=== PATIENT | male | born 1950 | race Caucasian/White ===

== ENCOUNTER 2019-09-14 05:56 | Outpatient (CLI) | payer BC ==
[~2019-09-14] VITALS: Ht 177.8 cm; Wt 122.7 kg
[2019-09-14] MEDS ORDERED: AMLO1CAP5 PO (12:42)
[2019-09-14] MEDS ORDERED: FURO40TA4 PO (12:42)
[2019-09-14] MEDS ORDERED: HYDR-3820 PO (12:42)
== END 2019-09-14 12:49 | disposition home or self-care (01) ==
LOC: PREOP 05:56
PROVIDERS: ATTEND Surgery
DX: Z01.818 Encounter for other preprocedural examination (principal)

== ENCOUNTER 2019-09-18 10:49 | Day surgery (SDC) | payer BC, MEDICARE, OTHER ==
--- NOTE | 2019-09-15 09:02 | HISTORY AND PHYSICAL ---
DATE OF SERVICE: This is for procedure date of 09/18/2019. ATTENDING PHYSICIAN: Dr. Lorenzo. HISTORY OF PRESENT ILLNESS: The patient is a 69-year-old male who was referred over to us for a need of a screening colonoscopy. The patient reports he has never had one done before up to this point in his life. He denies any family history of colon cancer as well as no visible blood in his stool. He does report that he did have a Cologuard test recently which did come back positive. He denies any diarrhea or abdominal pain, but does report episodes of constipation. PAST MEDICAL HISTORY: Melanoma, hypertension, degenerative joint disease, glaucoma, lower extremity edema, intestinal intussusception 1968, appendectomy in 1962, ORIF left collarbone 1964, left total knee replacement around 2011, excision of melanoma from the back 1999, bilateral cataracts in 2016, repair of intestinal intussusception 1968. ALLERGIES: No known drug allergies. MEDICATIONS: Hydrocodone, amlodipine/benazepril, aspirin 325 mg, Lasix. SOCIAL HISTORY: Negative for smoke, social for alcohol. FAMILY HISTORY: Mother, breast cancer. Father, lung cancer. Maternal grandfather, stroke. VITAL SIGNS: Blood pressure is 140/80. Current weight is 276.4, 5 feet 10 inches. REVIEW OF SYSTEMS: Well-nourished male in no acute distress. He is not experiencing any shortness of breath or difficulty breathing. No chest pain, palpitations or diaphoresis. No nausea, vomiting or abdominal pain. No diarrhea, but does report episodes of constipation. No visible red blood per rectum, but did have a positive Cologuard test. No dark tarry stools. No fever or chills. No recent inadvertent weight loss. All other review of systems are negative. PHYSICAL EXAMINATION: CHEST: Clear. Good breath sounds bilaterally. HEART: Regular, no murmurs. EXTREMITIES: No lower extremity edema. Negative Homans sign. HEENT: No scleral icterus. NECK: No cervical lymphadenopathy. ABDOMEN: Soft, nontender, nondistended. SKIN: Warm, dry and pink. NEUROLOGIC: Awake, alert and oriented x3. ASSESSMENT AND PLAN: A 69-year-old male who is in need of a screening colonoscopy. The risks and benefits of the procedure as well as the procedure and home care instructions were explained to the patient. The patient verbalized understanding of instructions and agrees to proceed as planned. At this time, we will proceed with scheduling the patient for a screening colonoscopy. Job ID: [id number] DocumentID: [id number] Dictated Date: 09/09/2019 10:12:18 Architectural Engineer Date: 09/09/2019 10:35:02 Dictated By: MAMI TESFAYE
[~2019-09-18] VITALS: Ht 177.8 cm; Wt 122.7 kg
[2019-09-18] VITALS (9 sets, daily range): BP systolic 123–150; BP diastolic 60–78
[~2019-09-18 10:49] MED LIST: AMLO1CAP5 PO; FURO40TA4 PO; HYDR-3820 PO
[2019-09-18] MEDS ORDERED: NS IV 500 ML 0 ML ONE (10:55)
[2019-09-18] MEDS ORDERED: LACTATED RINGERS 1,000 ML IV STA (10:56)
[2019-09-18] MEDS ORDERED: LIDOCAINE JELLY 2% 6 ML SYRINGE MM PRN (11:00)
[2019-09-18] MEDS ORDERED: LACTATED RINGERS 1,000 ML IV ONE (11:03)
[2019-09-18] MEDS ORDERED: MIDAZOLAM 2 MG/2 ML (VERSED) VIAL ONE (11:35)
[2019-09-18] MEDS ORDERED: PROPOFOL INJECTION 50 ML IV ONE ×2 (11:35→12:20)
--- NOTE | 2019-09-18 11:47 | Progress Note-Pre Operative ---
Pre-Operative Progress Note H&P Reviewed The H&P was reviewed, patient examined and no changes noted. Date Seen by Provider: Sep 18, 2019 Time Seen by Provider: 11: Date H&P Reviewed: Sep 18, 2019 Time H&P Reviewed: :30 Pre-Operative Diagnosis: screening colonoscopy ELIZABETH FUENTES MD Sep 18, 2019 11:47
[2019-09-18] MEDS ORDERED: LIDOCAINE JELLY 2% 6 ML SYRINGE ONE (11:48)
--- NOTE | 2019-09-18 11:50 | Discharge Inst-Surgical ---
D/C Lap Instructions-ALFREDO Follow Up Activity as tolerated High Fiber Diet 25g or more per day Avoid Alcohol, Caffeine, Spicy Glen and Acid foods. Drink 64 fluid oz or more of fluids per day. Symptoms to Report: Fever over 101 degree F, Nausea/Vomiting If any problems/questions: Contact your physician or go to Emergency Room ELIZABETH FUENTES MD Sep 18, 2019 11:50
[2019-09-18] MEDS ORDERED: HYDROcodone/APAP 5 MG/325 MG (LORTAB) TAB PO PRN ×2 (12:00)
[2019-09-18] MEDS ORDERED: ACETAMINOPHEN 325 MG TABLET PO PRN ×2 (12:00)
[2019-09-18] MEDS ORDERED: morphine INJ 10 MG/ML 1ML (SYR OR VIAL) IVP PRN ×4 (12:00)
[2019-09-18] MEDS ORDERED: ONDANSETRON 4 MG/2 ML (SDV) Z0FRAN IVP PRN ×2 (12:00)
--- NOTE | 2019-09-18 13:00 | Progress Note-Post Operative ---
Post-Operative Progess Note Surgeon (s)/Site Damage Prevention Technician (s) Surgeon ELIZABETH FUENTES MD Site Damage Prevention Technician: none Pre-Operative Diagnosis screening colonoscopy Post-Operative Diagnosis chronic stage 3 ext and int hemorrhoids, moderate sigmoid diverticulosis. Procedure & Operative Findings Date of Procedure 09/18/19 Procedure Performed/Findings Colonoscopy Anesthesia Type mac Estimated Blood Loss Estimated blood loss (mL): minimal Specimens/Packing Specimens Removed none ELIZABETH FUENTES MD Sep 18, 2019 13:00
[2019-09-18 13:45] LABS: CREATININE SERUM 1.17 MG/DL (0.60-1.30)
--- NOTE | 2019-09-18 14:03 | Anesthesia-General Post-Op ---
MAC Patient Condition Mental Status/LOC: Same as Preop Cardiovascular: Satisfactory Nausea/Vomiting: Absent Respiratory: Satisfactory Pain: Controlled Complications: Absent Post Op Complications Complications None Follow Up Care/Instructions Patient Instructions None needed. Anesthesiology Discharge Order Discharge Order Patient is doing well, no complaints, stable vital signs, no apparent adverse anesthesia problems. No complications reported per nursing. MADDIE DELACRUZ CRNA Sep 18, 2019 14:03
--- NOTE | 2019-09-18 16:32 | OPERATIVE REPORT ---
DATE OF SERVICE: 09/18/2019 ATTENDING PRIMARY CARE PHYSICIAN: Lg Lugo MD PREOPERATIVE DIAGNOSIS: Screening colonoscopy. POSTOPERATIVE DIAGNOSES: Chronic between stage II and III external and internal hemorrhoids, moderate sigmoid diverticulosis. PROCEDURE: Colonoscopy. SURGEON: Elizabeth Fuentes MD ANESTHESIA: Monitored anesthesia care. ESTIMATED BLOOD LOSS: Minimal. FINDINGS: Chronic between stage II and III external and internal hemorrhoids, moderate sigmoid diverticulosis. DISPOSITION: The patient tolerated the procedure well. INDICATIONS: The patient is a 69-year-old male referred over to us for screening colonoscopy. He has not had a colonoscopy up to this point in his life. He did have Cologuard test, which did come back positive. He does not report any red blood per rectum nor any dark tarry stools. He does report issues with constipation. DESCRIPTION OF PROCEDURE: The patient was brought to the endoscopy suite, laid in the left lateral decubitus position. After adequate IV pain and sedative medications and monitored anesthesia care, a digital rectal examination was performed. Chronic between stage II and III external and internal hemorrhoids were identified, which were not actively edematous nor inflamed and no bleeding. Normal sphincter tone was felt and there were no palpable masses. Prostate gland was palpable and appeared normal. The endoscope was then intubated to the anus and rectum gently insufflated. The endoscope was then advanced through the valves of [place] of the rectum with no polyps or any neoplasms identified. We then proceeded through the sigmoid colon where a moderate sigmoid diverticulosis identified. There were no mucosal inflammatory changes to indicate any active diverticulitis. The endoscope was then advanced through the remainder of the descending, transverse and ascending colon to the cecum. These segments appeared normal. Of note, the endoscope was easy going in; however, there was resistance met upon removal of the scope, after retracting the colonoscope, we re-advanced the scope with findings of mild superficial mucosal bleeding and no tears or perforation. This may indicate a tortuous sigmoid colon. He does have a history of intussusception of unknown type of bowel and we will proceed with a CT scan of his abdomen as an outpatient. There was no abdominal pain once awake and passing flatus. The patient tolerated the procedure well. We will recommend a high fiber diet with 30 grams of fiber daily as well as significant amounts of water to promote soft stools on a daily basis. We will get an outpatient CT scan of the abdomen and pelvis as well. Esa ID: [id number] DocumentID: [id number] Dictated Date: 09/18/2019 12:32:47 Radiology Orderly Date: 09/18/2019 16:31:49 Dictated By: ELIZABETH FUENTES MD [facility]
== END 2019-09-18 14:15 | disposition home or self-care (01) ==
LOC: ENDO 10:49
PROVIDERS: ATTEND Surgery
DX: Z12.11 Encounter for screening for malignant neoplasm of colon (principal); K63.89 Other specified diseases of intestine; K56.1 Intussusception; K64.2 Third degree hemorrhoids; K64.4 Residual hemorrhoidal skin tags; K57.30 Diverticulosis of large intestine without perforation or abscess without bleeding; I10 Essential (primary) hypertension; Z86.73 Personal history of transient ischemic attack (TIA), and cerebral infarction without residual deficits; Z79.899 Other long term (current) drug therapy; Z90.89 Acquired absence of other organs; Z85.820 Personal history of malignant melanoma of skin; Z96.652 Presence of left artificial knee joint; Z79.891 Long term (current) use of opiate analgesic; Z79.82 Long term (current) use of aspirin; Z80.3 Family history of malignant neoplasm of breast; Z80.1 Family history of malignant neoplasm of trachea, bronchus and lung; Z82.3 Family history of stroke
CPT/HCPCS: G0121; 36415; 82565; 84520

== ENCOUNTER → 2019-09-24 | Outpatient (CLI) | payer MEDICARE, OTHER ==
[~2019-09-24] MED LIST changes: +HOLD METFORMIN - RECEIVED CONTRAST 20 ML VIAL IV SCH; +IOHEXOL 350 MG/ML 100 ML (OMNIPAQUE 350) VIAL IV ONE; +NS 100 ML (IVPB) BAG IV ONE
--- NOTE | 2019-09-24 09:29 | Diagnostic Imaging Report ---
PROCEDURE: CT abdomen and pelvis with and without contrast. TECHNIQUE: Precontrast acquisitions were acquired through the abdomen and pelvis. Multiple contiguous axial images were obtained through the abdomen and pelvis after the administration of intravenous contrast. Auto Exposure Controls were utilized during the CT exam to meet ALARA standards for radiation dose reduction. INDICATION: Intussusception. No prior studies are available for comparison. FINDINGS: The lung bases are clear. No discrete liver mass is detected. There is a small stone within the gallbladder. No biliary ductal dilatation is seen. The pancreas and spleen are unremarkable. No adrenal mass is detected. Bilateral renal cysts are present, largest lower pole left kidney measuring 4 cm. Aorta is non-aneurysmal. The small and large bowel loops are normal caliber. There is no obstruction. Patient does have a left inguinal hernia. Portions of the descending and sigmoid colon extend into the left scrotal sac. No definite obstruction is seen. There is no free fluid or fluid collection. There is no free air. The partially filled urinary bladder is unremarkable. Prostate contains multiple calcifications. Lumbar spine demonstrates multilevel degenerative disc disease. IMPRESSION: 1. Cholelithiasis. 2. Left inguinal hernia containing portions of the descending and sigmoid colon. No bowel obstruction or strangulation is identified. 3. Renal cysts. Dictated by: Dictated on workstation # [id number]
== END ==
LOC: RAD 07:14
PROVIDERS: ATTEND Surgery
DX: K80.20 Calculus of gallbladder without cholecystitis without obstruction (principal); K40.90 Unilateral inguinal hernia, without obstruction or gangrene, not specified as recurrent; N28.1 Cyst of kidney, acquired
CPT/HCPCS: 74178

== ENCOUNTER 2019-10-22 12:29 | Emergency (ER) | payer MEDICARE, OTHER ==
[~2019-10-22] VITALS: Ht 177 cm; Wt 123.0 kg
[~2019-10-22 12:29] MED LIST changes: +ACHYD1T PO; -HOLD METFORMIN - RECEIVED CONTRAST 20 ML VIAL IV SCH; -HYDR-3820 PO; -IOHEXOL 350 MG/ML 100 ML (OMNIPAQUE 350) VIAL IV ONE; -NS 100 ML (IVPB) BAG IV ONE
--- NOTE | 2019-10-22 12:57 | ED Lower Extremity ---
General Chief Complaint: Skin/Wound Problems Stated Complaint: LEG BLEEDING History of Present Illness Date Seen by Provider: Oct 22, 2019 Time Seen by Provider: 12:40 Initial Comments 69 -year-old male brought by EMS for bleeding from bilateral lower extremities. The patient denies any injury to his lower extremities. He's been having ongoing wound issues with bilateral lower legs for several months. Today he began to have some oozing from both legs, he tried impressive dressings with no improvement. He does not currently have a primary care provider, switching from Dr. Tolentino to Dr. Krishnan, appt for late October with Dr. Krishnan. He is not on anticoagulants but does take aspirin 81 mg daily. Never been told of peripheral vascular disease, no history of DVT or cardiology visits. He is not diabetic and has not seen Wound Care. Onset: this morning Pain/Injury Location: bilateral leg (LOWER LEGS) Method of Injury: unknown Allergies and Home Medications Allergies Coded Allergies: No Known Drug Allergies (Verified , 09/18/19) Home Medications Amlodipine Besylate/Benazepril 1 Each Capsule, 1 EACH PO DAILY, (Reported) Cephalexin 500 Mg Tablet, 500 MG PO QID Prescribed by: LIZA MANCUSO on 10/22/19 1524 Furosemide 40 Mg Tablet, 40 MG PO DAILY, (Reported) Hydrocodone/Acetaminophen 1 Each Tablet, 1 TAB PO Q6H PRN for PAIN-MODERATE, (Reported) Patient Home Medication List Home Medication List Reviewed: Yes Review of Systems Constitutional: no symptoms reported, see HPI Skin: see HPI, change in color (Erythema, bilat LE, from knees to ankls. Feet cold to touch. ); No change in hair/nails; dryness, hx of skin cancer (back); No pruritus, No rash; other (trace bleedign to bilat lower legs, medial ankles. No obvious abrasion or lesion) All Other Systems Reviewed Negative Unless Noted: Yes Past Zqiegjv-Uipbvu-Hlybvs Hx Past Med/Social Hx: Reviewed Nursing Past Med/Soc Hx Patient Social History Recent Hopitalizations: No Seasonal Allergies Seasonal Allergies: No Past Medical History Surgeries: Yes (colon sx, clavicle fx, melanoma removed, knee replaced) Appendectomy Respiratory: No Cardiac: Yes Hypertension Neurological: Yes TIA Genitourinary: No Gastrointestinal: No Musculoskeletal: Yes Arthritis, Chronic Back Pain Endocrine: No HEENT: No Cancer: Yes Skin, Melanoma What Type of Treatment Did You: Surgical Intervention Psychosocial: No Integumentary: Yes (cellulitis? in legs) Blood Disorders: No Physical Exam Vital Signs Vital Signs - First Documented 10/22/19 12:30 Temp 37.8 Pulse 90 Resp 20 B/P (MAP) 156/73 (100) Pulse Ox 100 Capillary Refill : Height, Weight, BMI Height: '" Weight: lbs. oz. kg; 38.81 BMI Method: General Appearance: WD/WN, no apparent distress, obese HEENT: PERRL/EOMI, normal ENT inspection, TMs normal, pharynx normal Neck: non-tender, full range of motion, supple, normal inspection Cardiovascular: normal peripheral pulses (2+ bilat UEs and LEs), regular rate, rhythm, no murmur Respiratory: chest non-tender, lungs clear, normal breath sounds Gastrointestinal: normal bowel sounds, non tender, soft Knees: bilateral knee non-tender, bilateral knee normal inspection, bilateral knee normal range of motion Ankles: bilateral ankle normal range of motion, bilateral ankle swelling, bilateral ankle other (Erythema distal to knees and proximal to ankles. ) Feet: bilateral foot non-tender, bilateral foot normal range of motion, bilateral foot swelling (2+ edema) Neurologic/Tendon: normal sensation, normal motor functions, normal tendon functions Neurologic/Psychiatric: no motor/sensory deficits, alert, normal mood/affect, oriented x 3 Skin: other (negative Homans bilateral lower extremity, circumferential erythema from below needs to ankles bilaterally. Trace bleeding, bilat medial ankles, no obvious abrasions or lacerations.) Progress/Results/Core Measures Results/Orders Lab Results Laboratory Tests Test 10/22/19 12:35 10/22/19 13:08 Range/Units White Blood Count 7.1 4.3-11.0 10^3/uL Red Blood Count 3.86 L 4.35-5.85 10^6/uL Hemoglobin 11.9 L 13.3-17.7 G/DL Hematocrit 37 L 40-54 % Mean Corpuscular Volume 95 80-99 FL Mean Corpuscular Hemoglobin 31 25-34 PG Mean Corpuscular Hemoglobin Concent 33 32-36 G/DL Red Cell Distribution Width 14.1 10.0-14.5 % Platelet Count 262 130-400 10^3/uL Mean Platelet Volume 9.2 7.4-10.4 FL Neutrophils (%) (Auto) 75 42-75 % Lymphocytes (%) (Auto) 10 L 12-44 % Monocytes (%) (Auto) 11 0-12 % Eosinophils (%) (Auto) 4 0-10 % Basophils (%) (Auto) 0 0-10 % Neutrophils # (Auto) 5.3 1.8-7.8 X 10^3 Lymphocytes # (Auto) 0.7 L 1.0-4.0 X 10^3 Monocytes # (Auto) 0.8 0.0-1.0 X 10^3 Eosinophils # (Auto) 0.3 0.0-0.3 10^3/uL Basophils # (Auto) 0.0 0.0-0.1 10^3/uL Prothrombin Time 12.8 12.2-14.7 SEC INR Comment 0.9 0.8-1.4 Activated Partial Thromboplast Time 30 24-35 SEC Sodium Level 139 135-145 MMOL/L Potassium Level 4.8 3.6-5.0 MMOL/L Chloride Level 106 98-107 MMOL/L Carbon Dioxide Level 25 21-32 MMOL/L Anion Gap 8 5-14 MMOL/L Blood Urea Nitrogen 31 H 7-18 MG/DL Creatinine 1.49 H 0.60-1.30 MG/DL Estimat Glomerular Filtration Rate 47 BUN/Creatinine Ratio 21 Glucose Level 107 H 70-105 MG/DL Lactic Acid Level 0.90 0.50-2.00 MMOL/L Calcium Level 9.0 8.5-10.1 MG/DL Corrected Calcium 9.0 8.5-10.1 MG/DL Total Bilirubin 0.4 0.1-1.0 MG/DL Aspartate Amino Transf (AST/SGOT) 16 5-34 U/L Alanine Aminotransferase (ALT/SGPT) 11 0-55 U/L Alkaline Phosphatase 74 40-136 U/L Total Protein 7.3 6.4-8.2 GM/DL Albumin 4.0 3.2-4.5 GM/DL Urine Color YELLOW Urine Clarity CLEAR Urine pH 6.0 5-9 Urine Specific [place] 1.020 1.016-1.022 Urine Protein NEGATIVE NEGATIVE Urine Glucose (UA) NEGATIVE NEGATIVE Urine Ketones NEGATIVE NEGATIVE Urine Nitrite NEGATIVE NEGATIVE Urine Bilirubin NEGATIVE NEGATIVE Urine Urobilinogen 0.2 < = 1.0 MG/DL Urine Leukocyte Esterase 1+ H NEGATIVE Urine RBC (Auto) NEGATIVE NEGATIVE Urine RBC NONE /HPF Urine WBC 5-10 H /HPF Urine Squamous Epithelial Cells RARE /HPF Urine Crystals NONE /LPF Urine Bacteria TRACE /HPF Urine Casts NONE /LPF Urine Mucus NEGATIVE /LPF Urine Culture Indicated CULTURE PENDING Micro Results Microbiology 10/22/19 Influenza Types A,B Antigen (CARYN) - Final, Complete My Orders Orders - LIZA MANCUSO SAI Cbc With Automated Diff (10/22/19 12:50) Comprehensive Metabolic Panel (10/22/19 12:50) Blood Culture (10/22/19 12:50) Urinalysis (10/22/19 12:50) Urine Culture (10/22/19 12:50) Protime With Inr (10/22/19 12:50) Partial Thromboplastin Time (10/22/19 12:50) Chest 1 View, Ap/Pa Only (10/22/19 12:50) Ed Iv/Invasive Line Start (10/22/19 12:50) Influenza A And B Antigens (10/22/19 12:50) Lactic Acid Analyzer (10/22/19 12:50) Us Georgi Lower Ext [id number] (10/22/19 12:50) Us Venous Lower Ext Georgi (10/22/19 12:50) Acetaminophen Tablet/Caplet (Tylenol T (10/22/19 13:38) Vital Signs/I&O 10/22/19 10/22/19 12:30 15:38 Temp 37.8 Pulse 90 67 Resp 20 18 B/P (MAP) 156/73 (100) 139/73 Pulse Ox 100 98 Progress Progress Note : Time: 12:40 Progress Note Patient seen and evaluated and labs, finished the normal saline infusing per EMS 1 L, bilateral lower extremity ultrasounds venous and arterial, and chest x-ray. Compression dressing to bilat LEs, as needed for bleeding. 1320 patient to US. 1430 Patient back from US, no abnormalities on Venous or Arterial US Bilat LEs. Dressing bilateral lower extremity, there is no further bleeding, Serafin wrap supplied for compression. Influenza B-positive. Patient reports he is not showing myalgias started, he has chronic back pain. He did not get a flu shot this year. Results discussed with the patient. 1500 discharge instructions and return precautions reviewed with the patient. All questions answered Diagnostic Imaging Diagonstic Imaging: Xray Plain Films/CT/US/NM/MRI: chest Comments NAME: RANDALL VALENCIA [facility] REC#: [id number] PT STATUS: REG ER : 1950 PHYSICIAN: LIZA MANCUSO ADMIT DATE: 10/22/19/ER Signed Date of Exam:10/22/19 CHEST 1 VIEW, AP/PA ONLY Indication: Peripheral edema Portable chest 1:10 PM Heart size and pulmonary vascularity are normal. Lungs are clear. There are no effusions or pneumothoraces. IMPRESSION: Negative chest Dictated by: Dictated on workstation # [id number] Dict: 10/22/19 1315 Trans: 10/22/19 1316 [id number] Interpreted by: JAQUI VALVERDE MD Electronically signed by: JAQUI VALVERDE MD 10/22/19 1316 Reviewed: Reviewed by Fl Diagonstic Imaging: Ultrasound Plain Films/CT/US/NM/MRI: other (LEs) Comments NAME: RANDALL VALENCIA [facility] REC#: [id number] PT STATUS: REG ER : 1950 PHYSICIAN: LIZA MANCUSO ADMIT DATE: 10/22/19/ER Signed Date of Exam:10/22/19 US GEORGI LOWER EXT [id number] PROCEDURE: US Bilateral lower extremity arterial. TECHNIQUE: Multiple real-time grayscale images are obtained through both lower extremity arterial systems with color Doppler imaging and color Doppler spectral analysis. INDICATION: Leg bleeding. FINDINGS: In the right leg, patient has triphasic waveforms throughout the leg with normal velocity transitions from the groin to the ankle. In the left leg, patient has triphasic wave patterns with normal velocity transitions from the groin to ankle. There is no occlusion or hemodynamically significant stenosis. IMPRESSION: Negative arterial Doppler of the lower extremities. Dictated by: Dictated on workstation # [id number] Dict: 10/22/19 1502 Trans: 10/22/19 1507 [id number] Interpreted by: JAQUI VALVERDE MD Electronically signed by: JAQUI VALVERDE MD 10/22/19 1503 Reviewed: Reviewed by Me Diagonstic Imaging: Ultrasound Plain Films/CT/US/NM/MRI: leg Comments NAME: RANDALL VALENCIA [facility] REC#: [id number] PT STATUS: REG ER : 1950 PHYSICIAN: LIZA MANCUSO ADMIT DATE: 10/22/19/ER Draft Date of Exam:10/22/19 US VENOUS LOWER EXT GEORGI PROCEDURE: US Venous Lower Ext Georgi. TECHNIQUE: Multiple real-time grayscale images were obtained over the lower extremities in various projections, bilaterally. Additional duplex Doppler and color Doppler images were also obtained. INDICATION: Leg bleeding. Study is limited due to patient movement. There is no definite evidence of right or left lower extremity DVT. Both lower extremity venous systems shows normal compressibility with normal response to augmentation Valsalva. No fluid collection is seen. IMPRESSION: No evidence of right or left lower extremity DVT. Dictated on workstation # [id number] Dict: 10/22/19 1441 Trans: 10/22/19 1443 [id number] [id number] Interpreted by: MUSA MARTIN MD Electronically signed by: Reviewed: Reviewed by Me Departure Impression Primary Impression: Influenza B Additional Impression: Bilateral leg ulcer Qualified Codes: L97.919 - Non-pressure chronic ulcer of unspecified part of right lower leg with unspecified severity; L97.929 - Non-pressure chronic ulcer of unspecified part of left lower leg with unspecified severity Disposition: 01 HOME, SELF-CARE Condition: Improved Departure-Patient Inst. Decision time for Depature: 15:00 Referrals: ONEL ROBERSON MD (PCP) Primary Care Physician DAISY TOLENTINO MD (Family) Primary Care Physician Patient Instructions: Wound Care (DC), Flu, Adult (DC) Add. Discharge Instructions: Increase water intake, 16 ounces every 2 hours while awake. Take antibiotic, as prescribed. Use Aquaphor to both legs 2 times daily. Wrap and dressings to legs, as needed. Stay home until fever free 24 hours, without medication. Alternate between Tylenol 650 mg and ibuprofen 600 mg every 4 hours for pain or fever. You may take pfja-ylc-ciwyaav cough and cold medicine as needed. Elevate the leg higher than your heart for 20 minutes every hour. You have a scheduled appointment with Dr. Louie in the hospital wound care on October 27 at 1:15 PM. Change dressings to bilateral lower extremities as needed. Return to the emergency department for new, urgent health care needs. All discharge instructions reviewed with patient and/or family. Voiced understanding. Scripts Cephalexin (Cephalexin) 500 Mg Tablet 500 MG PO QID, #28 TAB 0 Refills Prov: LIZA MANCUSO 10/22/19 Copy Copies To 1: BEBETO KRISHNAN MD; JANINE LOUIE MD, AMY ARNP Oct 22, 2019 12:57
[2019-10-22 12:58] LABS: BASOPHILS % (AUTO) 0 % (0-10); EOSINOPHILS # (AUTO) 0.3 10^3/uL (0.0-0.3); EOSINOPHILS % (AUTO) 4 % (0-10); HEMATOCRIT 37 % (40-54); HEMOGLOBIN 11.9 G/DL (13.3-17.7); LYMPHOCYTES # (AUTO) 0.7 X 10^3 (1.0-4.0); LYMPHOCYTES % (AUTO) 10 % (12-44); MEAN CORPUSCULAR HEMOGLOBIN 31 PG (25-34); MEAN CORPUSCULAR HGB CONC 33 G/DL (32-36); MEAN CORPUSCULAR VOLUME 95 FL (80-99); MEAN PLATELET VOLUME 9.2 FL (7.4-10.4); MONOCYTES # (AUTO) 0.8 X 10^3 (0.0-1.0); MONOCYTES % (AUTO) 11 % (0-12); NEUTROPHILS # (AUTO) 5.3 X 10^3 (1.8-7.8); NEUTROPHILS % (AUTO) 75 % (42-75); PLATELET COUNT 262 10^3/uL (130-400); RED CELL DISTRIBUTION WIDTH 14.1 % (10.0-14.5); WHITE BLOOD COUNT 7.1 10^3/uL (4.3-11.0)
[2019-10-22 13:03] LABS: INR 0.9 (0.8-1.4); PROTHROMBIN TIME PATIENT 12.8 SEC (12.2-14.7)
[2019-10-22 13:10] LABS: BILIRUBIN,TOTAL 0.4 MG/DL (0.1-1.0); CREATININE SERUM 1.49 MG/DL (0.60-1.30); TOTAL PROTEIN 7.3 GM/DL (6.4-8.2)
[2019-10-22 13:11] LABS: POTASSIUM 4.8 MMOL/L (3.6-5.0)
[2019-10-22 13:12] LABS: BILIRUBIN,URINE NEGATIVE (NEGATIVE); CLARITY,URINE CLEAR; COLOR,URINE YELLOW; GLUCOSE, URINE (UA) NEGATIVE (NEGATIVE); KETONES,URINE NEGATIVE (NEGATIVE); LEUKOCYTE ESTERASE ,URINE 1+ (NEGATIVE); NITRITE,URINE NEGATIVE (NEGATIVE); PROTEIN,URINE NEGATIVE (NEGATIVE)
--- NOTE | 2019-10-22 13:17 | Diagnostic Imaging Report ---
Indication: Peripheral edema Portable chest 1:10 PM Heart size and pulmonary vascularity are normal. Lungs are clear. There are no effusions or pneumothoraces. IMPRESSION: Negative chest Dictated by: Dictated on workstation # [id number]
[2019-10-22 13:22] LABS: BACTERIA,URINE TRACE /HPF; SQUAMOUS EPITHELIAL CELL,UR RARE /HPF
[2019-10-22] MEDS ORDERED: ACETAMINOPHEN 325 MG TABLET PO STA (13:38)
--- NOTE | 2019-10-22 14:44 | Diagnostic Imaging Report ---
PROCEDURE: US Venous Lower Ext Antony. TECHNIQUE: Multiple real-time grayscale images were obtained over the lower extremities in various projections, bilaterally. Additional duplex Doppler and color Doppler images were also obtained. INDICATION: Leg bleeding. Study is limited due to patient movement. There is no definite evidence of right or left lower extremity DVT. Both lower extremity venous systems shows normal compressibility with normal response to augmentation Valsalva. No fluid collection is seen. IMPRESSION: No evidence of right or left lower extremity DVT. Dictated by: Dictated on workstation # [id number]
--- NOTE | 2019-10-22 15:05 | Diagnostic Imaging Report ---
PROCEDURE: US Bilateral lower extremity arterial. TECHNIQUE: Multiple real-time grayscale images are obtained through both lower extremity arterial systems with color Doppler imaging and color Doppler spectral analysis. INDICATION: Leg bleeding. FINDINGS: In the right leg, patient has triphasic waveforms throughout the leg with normal velocity transitions from the groin to the ankle. In the left leg, patient has triphasic wave patterns with normal velocity transitions from the groin to ankle. There is no occlusion or hemodynamically significant stenosis. IMPRESSION: Negative arterial Doppler of the lower extremities. Dictated by: Dictated on workstation # [id number]
[2019-10-22] MEDS ORDERED: CEPH500T PO (15:24)
[2019-10-22 15:38] VITALS: BP 139/73
== END 2019-10-22 15:41 | disposition home or self-care (01) ==
LOC: EDUNIT# 12:29 → ER 12:30
DX: L97.919 Non-pressure chronic ulcer of unspecified part of right lower leg with unspecified severity (principal); L97.929 Non-pressure chronic ulcer of unspecified part of left lower leg with unspecified severity; J10.1 Influenza due to other identified influenza virus with other respiratory manifestations; I10 Essential (primary) hypertension; Z79.82 Long term (current) use of aspirin; Z86.73 Personal history of transient ischemic attack (TIA), and cerebral infarction without residual deficits; Z85.820 Personal history of malignant melanoma of skin; Z85.828 Personal history of other malignant neoplasm of skin
CPT/HCPCS: 36415; 71045; 80053; 81000; 83605; 85025; 85610; 85730; 87040; 87088; 87804; 93925; 93970

== ENCOUNTER → 2019-10-28 | Outpatient (CLI) | payer MEDICARE, OTHER ==
[~2019-10-28] MED LIST changes: +CEPH500T PO
== END ==
LOC: WOUNDCARE 13:07
PROVIDERS: ATTEND Surgery
DX: I87.323 Chronic venous hypertension (idiopathic) with inflammation of bilateral lower extremity (principal); I89.0 Lymphedema, not elsewhere classified; E66.01 Morbid (severe) obesity due to excess calories
CPT/HCPCS: 99213

== ENCOUNTER → 2019-11-05 | Outpatient (CLI) | payer MEDICARE, OTHER ==
[~2019-11-05] MED LIST changes: +ASPI-586 PO
== END ==
LOC: WOUNDCARE 13:34
PROVIDERS: ATTEND Surgery
DX: L30.8 Other specified dermatitis (principal); I89.0 Lymphedema, not elsewhere classified; E66.01 Morbid (severe) obesity due to excess calories
CPT/HCPCS: 99213

== ENCOUNTER 2019-11-12 05:38 | Outpatient (CLI) | payer MEDICARE, OTHER ==
[~2019-11-12] VITALS: Ht 177.8 cm; Wt 122.7 kg
[~2019-11-12 05:38] MED LIST changes: -ASPI-586 PO
[2019-11-12] MEDS ORDERED: ASPI-586 PO (14:58)
== END 2019-11-12 15:19 | disposition home or self-care (01) ==
LOC: PREOP 05:38
PROVIDERS: ATTEND Surgery
DX: Z01.818 Encounter for other preprocedural examination (principal)

== ENCOUNTER → 2019-11-12 | Outpatient (CLI) | payer MEDICARE, OTHER | LOC: WOUNDCARE 12:18 | PROVIDERS: ATTEND Surgery | DX: L30.8 Other specified dermatitis (principal); I89.0 Lymphedema, not elsewhere classified; E66.01 Morbid (severe) obesity due to excess calories | CPT/HCPCS: 99212 ==

== ENCOUNTER 2019-11-19 07:21 | Day surgery (SDC) | payer MEDICARE, OTHER ==
[2019-11-19] VITALS (11 sets, daily range): BP systolic 134–169; BP diastolic 57–76
[~2019-11-19] VITALS: Ht 177.8 cm; Wt 122.7 kg
[~2019-11-19 07:21] MED LIST changes: +ASPI-586 PO
[2019-11-19] MEDS ORDERED: LACTATED RINGERS 1,000 ML IV PRN (07:25)
--- OUTSIDE RECORDS SUMMARY | 2019-11-19 07:26 | XMS REPORT | Clinical Summary ---
Author Author [facility] Organization [facility] Address Unknown Phone Unavailable Care Team Providers Care Product Coordinator Name Role Phone Eder Lorenzo MD PCP Source Comments Some departments are not documenting in the electronic medical record. If you d o not see the information that you expected, contact Release of Information in [facility] [employer] Information Management department at [phone] for further assistan ce in locating additional records.[facility] Allergies Not on File Medications Not on file Active Problems Not on file Family History Medical History Relation Name Comments Cancer-Lung Father smoker Cancer-Breast Mother Brain Tumor Other M 1st cousin Relation Name Status Comments Brother Alive Daughter Alive Father (Age 73) Maternal Aunt (Age 75) Maternal Grandfather (Age 75) Maternal Grandmother (Age 55) Maternal Uncle (Age 75) Mother (Age 68) Other M 1st cousin (Age 45) Paternal Aunt (Age 55) Paternal Aunt (Age 75) Paternal Aunt (Age 75) Paternal Aunt (Age 75) Paternal Grandfather (Age 35) Paternal Grandmother (Age 85) Paternal Uncle (Age 75) Paternal Uncle (Age 75) Paternal Uncle (Age 75) Sister Alive Son Alive Social History Date Tobacco Use Types Packs/Day Years Used Never Assessed Sex Assigned at Date Recorded Not on file Industry Job Start Date Occupation Not on file Not on file Not on file Travel End Travel History Travel Start No recent travel history available. Last Filed Vital Signs Not on file Plan of Treatment Health Maintenance Due Date Last Done Comments HEPATITIS C SCREENING 1950 MEDICARE ANNUAL WELLNESS 1950 VISIT DTAP/TDAP VACCINES (1 - 1962 Tdap) PHYSICAL (COMPREHENSIVE) 1969 EXAM COLORECTAL CANCER 2001 SCREENING SHINGLES RECOMBINANT 2001 VACCINE (1 of 2) PNEUMONIA (PCV13/PPSV23) 02/02/2016 VACCINES (1 of 2 - PCV13) INFLUENZA VACCINE 03/26/2019 Results Not on filefrom Last 3 Months Insurance Type Payer Benefit Subscriber ID Effective Phone Address Plan / Dates Group Medicare MEDICARE MEDICARE xxxxxxxxxxx 2016-P PART A AND resent B Medicare CIGNA CIGNA xxxxxxxxxx 2018-P MEDICARE resent SUPPLEMENT 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 Advance Directive/DPOA
--- OUTSIDE RECORDS SUMMARY | 2019-11-19 07:26 | XMS REPORT | Continuity of Care Document ---
Author Organization Unknown Address Unknown Phone Unavailable Allergies Active Description Code Type Severity Reaction Onset Reported/Identified Relationship to Patient Clinical Status Yes No Known Drug Allergies [id number] Drug Allergy Unknown N/A 09/18/2019 Medications There is no data. Problems Date Dx Coded Attending Type Code Diagnosis Diagnosed By 08/30/2015 ONEL ROBERSON MD Ot M79. 89 09/14/2019 ELIZABETH FUENTES MD, Ot Z01.81 8 ENCOUNTER FOR OTHER PREPROCEDURAL EXAMIN 09/15/2019 ELIZBAETH FUENTES MD, Ot Z01.81 8 ENCOUNTER FOR OTHER PREPROCEDURAL EXAMIN 09/16/2019 ONEL ROBERSON MD Ot M79. 89 OTHER SPECIFIED SOFT TISSUE DISORDERS 09/18/2019 ELIZABETH FUENTES MD Ot I10 ESSENTIAL (PRIMARY) HYPERTENSION 09/18/2019 ELIZABETH FUENTES MD Ot K56.1 INTUSSUSCEPTION 09/18/2019 ELIZABETH FUENTES MD Ot K57.30 DVRTCLOS OF LG INT W/O PERFORATION OR AB 09/18/2019 ELIZABETH FUENTES MD Ot K63.89 OTHER SPECIFIED DISEASES OF INTESTINE 09/18/2019 ELIZABETH FUENTES MD, Ot K64.2 THIRD DEGREE HEMORRHOIDS 09/18/2019 ELIZABETH FUENTES MD, Ot K64.4 RESIDUAL HEMORRHOIDAL SKIN TAGS 09/18/2019 ELIZABETH FUENTES MD Ot Z12.11 ENCOUNTER FOR SCREENING FOR MALIGNANT NE 09/18/2019 ELIZABETH FUENTES MD Ot Z79.82 RETIREMENT (CURRENT) USE OF ASPIRIN 09/18/2019 ELIZABETH FUENTES MD, Ot Z79.89 1 RETIREMENT (CURRENT) USE OF OPIATE ANALGE 09/18/2019 ELIZABETH FUENTES MD, Ot Z79.89 9 OTHER RETIREMENT (CURRENT) DRUG THERAPY 09/18/2019 ELIZABETH FUENTES MD, Ot Z80.1 FAMILY HISTORY OF MALIG NEOPLASM OF TRAC 09/18/2019 ELIZABETH FUENTES MD, Ot Z80.3 FAMILY HISTORY OF MALIGNANT NEOPLASM OF 09/18/2019 ELIZABETH FUENTES MD, Ot Z82.3 FAMILY HISTORY OF STROKE 09/18/2019 ELIZABETH FUENTES MD, Ot Z85.82 0 PERSONAL HISTORY OF MALIGNANT MELANOMA O 09/18/2019 ELIZABETH FUENTES MD, Ot Z86.73 PRSNL HX OF TIA (TIA), AND CEREB INFRC W 09/18/2019 ELIZABETH FUENTES MD, Ot Z90.89 ACQUIRED ABSENCE OF OTHER ORGANS 09/18/2019 ELIZABETH FUENTES MD, Ot Z96.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 09/22/2019 ELIZABETH FUENTES MD, Ot I10 ESSENTIAL (PRIMARY) HYPERTENSION 09/22/2019 ELIZABETH FUENTES MD, Ot K56.1 INTUSSUSCEPTION 09/22/2019 ELIZABETH FUENTES MD, Ot K57.30 DVRTCLOS OF LG INT W/O PERFORATION OR AB 09/22/2019 ELIZABETH FUENTES MD, Ot K63.89 OTHER SPECIFIED DISEASES OF INTESTINE 09/22/2019 ELIZABETH FUENTES MD, Ot K64.2 THIRD DEGREE HEMORRHOIDS 09/22/2019 ELIZABETH FUENTES MD, Ot K64.4 RESIDUAL HEMORRHOIDAL SKIN TAGS 09/22/2019 ELIZABETH FUENTES MD, Ot Z12.11 ENCOUNTER FOR SCREENING FOR MALIGNANT NE 09/22/2019 ELIZABETH FUENTES MD, Ot 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 09/22/2019 ELIZABETH FUENTES MD, Ot Z79.89 1 RETIREMENT (CURRENT) USE OF OPIATE ANALGE 09/22/2019 ELIZABETH FUENTES MD, Ot Z79.89 9 OTHER RETIREMENT (CURRENT) DRUG THERAPY 09/22/2019 ELIZABETH FUENTES MD, Ot Z80.1 FAMILY HISTORY OF MALIG NEOPLASM OF TRAC 09/22/2019 ELIZABETH FUENTES MD, Ot Z80.3 FAMILY HISTORY OF MALIGNANT NEOPLASM OF 09/22/2019 ELIZABETH FUENTES MD, Ot Z82.3 FAMILY HISTORY OF STROKE 09/22/2019 ELIZABETH FUENTES MD, Ot Z85.82 0 PERSONAL HISTORY OF MALIGNANT MELANOMA O 09/22/2019 ELIZABETH FUENTES MD, Ot Z86.73 PRSNL HX OF TIA (TIA), AND CEREB INFRC W 09/22/2019 ELIZABETH FUENTES MD, Ot Z90.89 ACQUIRED ABSENCE OF OTHER ORGANS 09/22/2019 ELIZABETH FUENTES MD, Ot Z96.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 09/22/2019 ONEL ROBERSON MD, Ot M79. 89 OTHER SPECIFIED SOFT TISSUE DISORDERS 09/24/2019 ELIZABETH FUENTES MD, Ot I10 ESSENTIAL (PRIMARY) HYPERTENSION 09/24/2019 ELIZABETH FUENTES MD, Ot K56.1 INTUSSUSCEPTION 09/24/2019 ELIZABETH FUENTES MD, Ot K57.30 DVRTCLOS OF LG INT W/O PERFORATION OR AB 09/24/2019 ELIZABETH FUENTES MD, Ot K63.89 OTHER SPECIFIED DISEASES OF INTESTINE 09/24/2019 ELIZABETH FUENTES MD, Ot K64.2 THIRD DEGREE HEMORRHOIDS 09/24/2019 ELIZABETH FUENTES MD, Ot K64.4 RESIDUAL HEMORRHOIDAL SKIN TAGS 09/24/2019 ELIZABETH FUENTES MD, Ot Z12.11 ENCOUNTER FOR SCREENING FOR MALIGNANT NE 09/24/2019 ELIZABETH FUENTES MD, Ot Z79.82 RETIREMENT (CURRENT) USE OF ASPIRIN 09/24/2019 ELIZABETH FUENTES MD, Ot Z79.89 1 RETIREMENT (CURRENT) USE OF OPIATE ANALGE 09/24/2019 ELIZABETH FUENTES MD, Ot 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 89 OTHER SPECIFIED SOFT TISSUE DISORDERS 09/25/2019 ALFREDO JIMÉNEZ, ELIZABETH Ot K40.90 UNIL INGUINAL HERNIA, W/O OBST OR GANGR, 09/25/2019 ALFREDO JIMÉNEZ, ELIZABETH Ot K80.20 CALCULUS OF GALLBLADDER W/O CHOLECYSTITI 09/25/2019 ALFREDO JIMÉNEZ, ELIZABETH Ot N28.1 CYST OF KIDNEY, ACQUIRED 10/20/2019 ALFREDO JIMÉNEZ, ELIZABETH Ot K40.90 UNIL INGUINAL HERNIA, W/O OBST OR GANGR, 10/20/2019 ALFREDO JIMÉNEZ, ELIZABETH Ot K80.20 CALCULUS OF GALLBLADDER W/O CHOLECYSTITI 10/20/2019 ALFREDO JIMÉNEZ, ELIZABETH Ot N28.1 CYST OF KIDNEY, ACQUIRED 10/22/2019 LIZA MANCUSO Ot I10 ESSENTIAL (PRIMARY) HYPERTENSION 10/22/2019 BARTOLOME, LIZA GIBBS Ot J10.1 FLU DUE TO OTH IDENT INFLUENZA VIRUS W O 10/22/2019 BARTOLOME, LIZA KRAFTP Ot L97.919 NON-PRS CHRONIC ULC UNSP PRT OF R LOW LE 10/22/2019 BARTOLOME, LIZA CURTAIN WORKER Ot L97.929 NON-PRS CHRONIC ULC UNSP PRT OF L LOW LE 10/22/2019 BARTOLOME, LIZA KRAFTP Ot M79.604 PAIN IN RIGHT LEG 10/22/2019 LIZA MANCUSOP Ot Z79.82 RETIREMENT (CURRENT) USE OF ASPIRIN 10/22/2019 BARTOLOME, LIZA KRAFTP Ot Z85.820 PERSONAL HISTORY OF MALIGNANT MELANOMA O 10/22/2019 LIZA MANCUSO Ot Z85.828 PERSONAL HISTORY OF OTHER MALIGNANT NEOP 10/22/2019 BARTOLOME, LIZA KRAFTP Ot Z86.73 PRSNL HX OF TIA (TIA), AND CEREB INFRC W 10/26/2019 BARTOLOME, LIZA CURTAIN WORKER Ot I10 ESSENTIAL (PRIMARY) HYPERTENSION 10/26/2019 BARTOLOME, LIZA KRAFTP Ot J10.1 FLU DUE TO OTH IDENT INFLUENZA VIRUS W O 10/26/2019 BARTOLOME, LIZA KRAFTP Ot L97.919 NON-PRS CHRONIC ULC UNSP PRT OF R LOW LE 10/26/2019 BARTOLOME, LIZA CURTAIN WORKER Ot L97.929 NON-PRS CHRONIC ULC UNSP PRT OF L LOW LE 10/26/2019 BARTOLOME, LIZA CURTAIN WORKER Ot M79.604 PAIN IN RIGHT LEG 10/26/2019 LIZA MANCUSO SAI Ot Z79.82 RETIREMENT (CURRENT) USE OF ASPIRIN 10/26/2019 LIZA MANCUSO SAI Ot Z85.820 PERSONAL HISTORY OF MALIGNANT MELANOMA O 10/26/2019 LIZA MANCUSO SAI Ot Z85.828 PERSONAL HISTORY OF OTHER MALIGNANT NEOP 10/26/2019 BARTOLOME LIZA GIBBS Ot Z86.73 PRSNL HX OF TIA (TIA), AND CEREB INFRC W 10/30/2019 JANINE FAROOQ MD, Ot E66.01 MORBID (SEVERE) OBESITY DUE TO EXCESS CA 10/30/2019 JANINE FAROOQ MD, Ot I87.323 CHRONIC VENOUS HTN W INFLAMMATION OF GEORGI 10/30/2019 JANINE FAROOQ MD, Ot I89 .0 LYMPHEDEMA, NOT ELSEWHERE CLASSIFIED 11/11/2019 JANINE FAROOQ MD, Ot E66.01 MORBID (SEVERE) OBESITY DUE TO EXCESS CA 11/11/2019 JANINE FAROOQ MD, Ot I89 .0 LYMPHEDEMA, NOT ELSEWHERE CLASSIFIED 11/11/2019 JANINE FAROOQ MD, Ot L30 .8 OTHER SPECIFIED DERMATITIS 11/12/2019 ELIZABETH FUENTES MD Ot Z01.81 8 ENCOUNTER FOR OTHER PREPROCEDURAL EXAMIN 11/13/2019 ELIZABETH FUENTES MD Ot Z01.81 8 ENCOUNTER FOR OTHER PREPROCEDURAL EXAMIN 11/18/2019 JANINE FAROOQ MD, Ot E66.01 MORBID (SEVERE) OBESITY DUE TO EXCESS CA 11/18/2019 JANINE FAROOQ MD, Ot I89 .0 LYMPHEDEMA, NOT ELSEWHERE CLASSIFIED 11/18/2019 JANINE FAROOQ MD, Ot L30 .8 OTHER SPECIFIED DERMATITIS 11/18/2019 JANINE FAROOQ MD, Ot E66.01 MORBID (SEVERE) OBESITY DUE TO EXCESS CA 11/18/2019 JANINE FAROOQ MD, Ot I89 .0 LYMPHEDEMA, NOT ELSEWHERE CLASSIFIED 11/18/2019 JANINE FAROOQ MD, Ot L30 .8 OTHER SPECIFIED DERMATITIS 11/18/2019 ELIZABETH FUENTES MD Ot Z01.81 8 ENCOUNTER FOR OTHER PREPROCEDURAL EXAMIN Procedures There is no data. Results Test Result Range Serum or plasma urea nitrogen measuremen t (mass/volume) - 09/18/19 13:17 Serum or plasma urea nitrogen measurement (mass/volume ) 19 mg/dL 7-18 Serum or plasma creatinine measurement ( mass/volume) - 09/18/19 13:17 Serum or plasma creatinine measurement (mass/volume) 1.17 mg/dL 0.60-1.30 [id number] - 10/22/19 12:30 [id number] SPECIMEN AVAILABLE [facility] Complete blood count (CBC) with automate d white blood cell (WBC) differential - 10/22/19 12:35 Blood leukocytes automated count (number/volume) 7.1 10*3/uL 4.3-11.0 Blood erythrocytes automated count (number/volume) 3.86 10*6/uL 4.35-5.85 Venous blood hemoglobin measurement (mass/volume) 11.9 g/dL 13.3-17.7 Blood hematocrit (volume fraction) 37 % 40-54 Automated erythrocyte mean corpuscular volume 95 [ foz_us] 80-99 Automated erythrocyte mean corpuscular h emoglobin (mass per erythrocyte) 31 pg 25-34 Automated erythrocyte mean corpuscular h emoglobin concentration measurement (mass/volume) 33 g/dL 32-36 Automated erythrocyte distribution width ratio 14. 1 % 10.0- 14.5 Automated blood platelet count (count/volume) 262 10*3/uL 130-400 Automated blood platelet mean volume measurement 9.2 [foz_us] 7.4-10.4 Automated blood neutrophils/100 leukocytes 75 % 42-75 Automated blood lymphocytes/100 leukocytes 10 % 12-44 Blood monocytes/100 leukocytes 11 % 0-12 Automated blood eosinophils/100 leukocytes 4 % 0-10 Automated blood basophils/100 leukocytes 0 % 0-10 Blood neutrophils automated count (number/volume) 5.3 10*3 1.8-7.8 Blood lymphocytes automated count (number/volume) 0.7 10*3 1.0-4.0 Blood monocytes automated count (number/volume) 0. 8 10*3 0.0-1.0 Automated eosinophil count 0.3 10*3/uL 0 .0-0.3 Automated blood basophil count (count/volume) 0.0 10*3/uL 0.0-0.1 PT panel in platelet poor plasma by coag ulation assay - 10/22/19 12:35 Prothrombin time (PT) in platelet poor plasma by coagu lation assay 12.8 s 12.2-14.7 INR in platelet poor plasma or blood by coagulation as say 0.9 0.8-1.4 Activated partial thromboplastin time (a PTT) in platelet poor plasma bycoagulation assay - 10/22/19 12:35 Activated partial thromboplastin time (a PTT) in platelet poor plasma bycoagulation assay 30 s 24-35 Comprehensive metabolic panel - 10/22/19 12:35 Serum or plasma sodium measurement (moles/volume) 139 mmol/L 135-145 Serum or plasma potassium measurement (moles/volume) 4.8 mmol/L 3.6-5.0 Serum or plasma chloride measurement (moles/volume) 106 mmol/L 98-107 Carbon dioxide 25 mmol/L 21-32 Serum or plasma anion gap determination (moles/volume) 8 mmol/L 5-14 Serum or plasma urea nitrogen measurement (mass/volume ) 31 mg/dL 7-18 Serum or plasma creatinine measurement (mass/volume) 1.49 mg/dL 0.60-1.30 Serum or plasma urea nitrogen/creatinine mass ratio 21 NRG Serum or plasma creatinine measurement w ith calculation of estimated glomerular filtration rate 47 NRG Serum or plasma glucose measurement (mass/volume) 107 mg/dL 70-105 Serum or plasma calcium measurement (mass/volume) 9.0 mg/dL 8.5-10.1 Serum or plasma total bilirubin measurement (mass/volu me) 0.4 mg/dL 0.1-1.0 Serum or plasma alkaline phosphatase en surement (enzymatic activity/volume) 74 U/L 40-136 Serum or plasma aspartate aminotransfera se measurement (enzymatic activity/volume) 16 U/L 5-34 Serum or plasma alanine aminotransferase measurement (enzymatic activity/volume) 11 U/L 0-55 Serum or plasma protein measurement (mass/volume) 7.3 g/dL 6.4-8.2 Serum or plasma albumin measurement (mass/volume) 4.0 g/dL 3.2-4.5 CALCIUM CORRECTED 9.0 mg/dL 8.5-10.1 Blood lactic acid measurement (moles/vol ume) - 10/22/19 12:35 Blood lactic acid measurement (moles/volume) 0.90 mmol/L 0.50-2.00 Bacterial blood culture - 10/22/19 12:57 Bacterial blood culture NG NRG Complete urinalysis with reflex to cultu re - 10/22/19 13:08 Urine color determination YELLOW NRG Urine clarity determination CLEAR NR G Urine pH measurement by test strip 6.0 5-9 Specific gravity of urine by test strip 1.020 1.016-1.022 Urine protein assay by test strip, semi-quantitative NEGATIVE NEGATIVE Urine glucose detection by automated test strip NE GATIVE NEGATIVE Erythrocytes detection in urine sediment by light micr oscopy NEGATIVE NEGATIVE Urine ketones detection by automated test strip NE GATIVE NEGATIVE Urine nitrite detection by test strip NEGATIVE NEGATIVE Urine total bilirubin detection by test strip NEGA TIVE NEGATIVE Urine urobilinogen measurement by automated test strip (mass/volume) 0.2 mg/dL < = 1.0 Urine leukocyte esterase detection by dipstick 1+ NEGATIVE Automated urine sediment erythrocyte cou nt by microscopy (number/high power field) NONE NRG Automated urine sediment leukocyte count by microscopy (number/high power field) [HPF] NRG Bacteria detection in urine sediment by light microsco py TRACE NRG Squamous epithelial cells detection in u rine sediment by light microscopy RARE NRG Crystals detection in urine sediment by light microsco py NONE NRG Casts detection in urine sediment by light microscopy NONE NRG Mucus detection in urine sediment by light microscopy NEGATIVE NRG Complete urinalysis with reflex to culture CULTURE PENDING NRG Bacterial urine culture - 10/22/19 13:08 Bacterial urine culture NG NRG Influenza virus A and B antigen detectio n - 10/22/19 13:16 CALL POSITIVES (F1 HELP) CALL TO ADRIEN AT [phone] NRG FLU RESULT POSITIVE FOR INFLUENZA A ANT IGEN, NEG FOR B ANTIGEN, BY IA NRG Bacterial blood culture - 10/22/19 14:32 Bacterial blood culture NG NRG Encounters ACCT No. Visit Date/Time Discharge Status Pt. Type Provider Facility Loc./Unit Complaint [id number] 11/12/2019 12:18:00 23:59:59 CLS Outpatient JANINE FAROOQ MD [facility] WOUND[facility] [id number] 11/12/2019 05:38:00 15:19:00 DIS Outpatient ELIZABETH FUENTES MD [facility] PREOP GALLSTONES [id number] 11/05/2019 13:34:00 23:59:59 CLS Outpatient JANINE FAROOQ MD [facility] [id number] 10/28/2019 13:07:00 23:59:59 CLS Outpatient JANINE FAROOQ MD [facility] W[facility] [id number] 10/22/2019 12:30:00 15:41:00 DIS Emergency LIZA MANCUSO [facility] ER LEG BLEEDING [id number] 09/24/2019 07:14:00 23:59:59 CLS Outpatient ELIZABETH FUENTES MD [facility] RAD HX INTUSSUSCEPTION [id number] 09/18/2019 10:49:00 14:15:00 DIS Outpatient ELIZABETH FUENTES MD [facility] ENDO SCREENING [id number] 09/14/2019 05:56:00 12:49:00 DIS Outpatient ELIZABETH FUENTES MD [facility] PREOP COLONOSCOPY [id number] 08/11/2015 13:42:00 23:59:59 CLS Outpatient DA JIMÉNEZ, ONEL R [facility] RAD REDNESS/SWELLING R LOWE R LEG [id number] 11/19/2019 08:00:00 P EN Preadmit ELIZABETH FUENTES MD [facility] SDC GALLSTONES
--- OUTSIDE RECORDS SUMMARY | 2019-11-19 07:26 | XMS REPORT ---
Author Author [facility] Organization [facility] Address [address] [address] Care Team Providers Care Insurance Verification Representative Name Role Phone ELIZABETH FUENTES MD Unavailable Unavailable DA JIMÉNEZ, ONEL Newman Unavailable Unavailable LIZA ABBOTT Unavailable Unavailable CECIL ERVIN DO Unavailable Unavailable OSEAS JIMÉNEZ, JANINE Stallings Unavailable Unavailable Allergies No Information Medications No Information Problems Problem Normalized Date of Normalized Normalized Provider Fac ility Classification Problem(s) Problem Problem Problem Sta tus Onset/Resoluti Duration on Residual Acquired 10-19-2019 - Episodic Active TAKAAKI KIDO , [facility] Via codes; absence of [facility] unclassified other organs Hospital - (7 sources.) [place] ([address]) Biliary tract Calculus of 10-20-2019 - Episodic Active TAKAAKI KIDO , [facility] Via disease (2 gallbladder [facility] sources.) without Hospital - cholecystitis [place] without (02044) obstruction Other diseases Chronic venous 10-29-2019 - Chronic Active CARYN AUGUSTO FAROOQ [facility] Via of veins and hypertension [facility] lymphatics (1 (idiopathic) Hospital - source.) with [place] inflammation ([address]23) of bilateral lower extremity Other diseases Cyst of 10-20-2019 - Episodic Active TAKAAKI K OSCAR , [facility] Via of kidney and kidney, [facility] [place] ureters (2 acquired Hospital - sources.) [place] ([address]) Diverticulosis Diverticulosis 10-19-2019 - Chronic Active JORGE AAKI KIDO , [facility] Via and of large [facility] diverticulitis intestine Hospital - (7 sources.) without [place] perforation or (00404) abscess without bleeding Other Encounter for 10-19-2019 - Episodic Active TAKAAKI KI DO , [facility] Via screening for screening for MD [place] suspected malignant Hospital - conditions neoplasm of [place] (not mental colon (73675) disorders or infectious disease) (7 sources.) Essential Essential 10-19-2019 - Chronic Active TAKAAKI KIDO , [facility] Via hypertension (primary) [facility] (10 sources.) hypertension [facility] ([address]) Residual Family history 10-19-2019 - Episodic Active TAKAAKI K OSCAR , [facility] Via codes; of malignant [facility] unclassified neoplasm of Hospital - (7 sources.) breast [place] (39197) Residual Family history 10-19-2019 - Episodic Active TAKAAKI K OSCAR , [facility] Via codes; of malignant [facility] [place] unclassified neoplasm of Hospital - (7 sources.) trachea, [place] bronchus and (03359) lung Residual Family history 10-19-2019 - Episodic Active TAKAAKI K OSCAR , [facility] Via codes; of stroke [facility] unclassified Hospital - (7 sources.) [place] (19085) Influenza (3 Influenza due 10-26-2019 - Episodic Active LIZA HI TE , [facility] Via sources.) to other SAI [facility] identified Hospital - influenza [place] virus with (91566) other respiratory manifestations Intestinal Intussusceptio 10-19-2019 - Episodic Active TAKAAKI KIDO , [facility] Via obstruction n [facility] without hernia Hospital - (7 sources.) [place] ([address]) Other commissioning manager 10-19-2019 - Episodic Active TAKAAKI KIDO , [facility] Via aftercare (10 (current) use [facility] sources.) of aspirin [facility] (17990) Other commissioning manager 10-19-2019 - Episodic Active TAKAAKI KIDO , [facility] Via aftercare (7 (current) use [facility] [place] sources.) of opiate Hospital - analgesic [place] (73528) Other diseases Lymphedema, 10-29-2019 - Chronic Active LJ FAROOQ [facility] Via of veins and not elsewhere , [facility] [place] lymphatics (2 classified Hospital - sources.) [place] ([address]256) Other Morbid 10-29-2019 - Chronic Active JANINE FAROOQ [facility] Via nutritional; (severe) , [facility] [place] endocrine; and obesity due to Hospital - metabolic excess [place] disorders (2 calories (97035) sources.) Chronic ulcer Non-pressure 10-26-2019 - Chronic Active LIZA HI TE , [facility] Via of skin (6 chronic ulcer [facility] sources.) of unspecified Hospital - part of right [place] lower leg with (04137) unspecified severity Translations: [ NON-PRS CHRONIC ULC UNSP PRT OF L LOW LE] Other Other long 10-19-2019 - Episodic Active TAKAAKI KIDO , [facility] Via aftercare (7 term (current) [facility] [place] sources.) drug therapy [facility] ([address]802) Allergic Other 11-11-2019 - Episodic Active JANINE FAROOQ [facility] Via reactions (1 specified , [facility] [place] source.) dermatitis [facility] (85465) Other Other 10-19-2019 - Episodic Active TAKAAKI KIDO , [facility] Via gastrointestin specified [facility] al disorders diseases of Hospital - (7 sources.) intestine [place] (51437) Other Other Episodic Active ONEL SEGLIE , [facility] Via connective specified soft [facility] [place] tissue Hospital - (3 sources.) disorders [place] (44746) Other Pain in right 10-26-2019 - Episodic Active LIZA BARTOLOME , [facility] Via connective leg [facility] tissue disease Hospital - (3 sources.) [place] (70776) Melanomas of Personal 10-19-2019 - Episodic Active TAKAAKI KID O , [facility] Via skin (10 history of [facility] [place] sources.) malignant Hospital - melanoma of [place] skin (81330) Other Personal 10-26-2019 - Episodic Active LIZA BARTOLOME , [facility] Via non-epithelial history of SAI [place] cancer of skin other Hospital - (3 sources.) malignant [place] neoplasm of (34981) skin Other Personal 10-19-2019 - Episodic Active TAKAAKI KIDO , [facility] Via circulatory history of [facility] [place] (10 transient Hospital - sources.) ischemic [place] attack (TIA), (26417) and cerebral infarction without residual deficits 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 TAKAAKI KIDO , [facility] Via connective left [facility] [place] tissue disease artificial Hospital - (7 sources.) knee joint [place] (43261) Hemorrhoids Third degree 10-19-2019 - Episodic Active TAKAAKI KIDO , [facility] Via (14 sources.) hemorrhoids [facility] [place] Translations: Hospital - [ RESIDUAL [place] HEMORRHOIDAL (17138) SKIN TAGS] Abdominal Unilateral 10-20-2019 - Episodic Active TAKAAKI KIDO , [facility] Via hernia (2 inguinal [facility] [place] sources.) hernia, Hospital - without [place] obstruction or (10359) gangrene, not specified as recurrent Procedures No Information Immunizations No Information Results No Information Vital Signs No Information Interventions No Information Plan of Treatment No Information Goals No Information Social History No Information Functional Status No Information Mental Status No Information Encounters Encounter Normalized Encounter Encounter Diagnosis Care Provi rena Organization Date Type 10-22-2019 Emergency department no information LIZA GIBBS (no [facility] - patient visit phone) CECIL ERVIN DO [facility] 10-22-2019 (no phone) LIZA MANCUSO (no phone) [facility] (no phone) [facility] GIB[facility] (no phone) 11-12-2019 Patient encounter no information JANINE FAROOQ MD (no [facility] procedure phone) [facility] (no phone) 11-12-2019 Patient encounter no information ELIZABETH FUENTES MD [facility]n o [facility] 11-05-2019 Patient encounter no information JANINE FAROOQ MD (no [facility] procedure phone) [facility] (no phone) 10-28-2019 Patient encounter no information JANINE FAROOQ MD (no [facility] procedure phone) [facility] (no phone) 10-22-2019 Patient encounter no information LIZA GIBBS (n o [facility] procedure phone) [facility] (no phone) 09-24-2019 Patient encounter no information ELIZABETH FUENTES MD (n o [facility] procedure phone) [facility] (no phone) 09-18-2019 Patient encounter no information ELIZABETH FUENTES MD [facility] o [facility] 09-14-2019 Patient encounter no information no name (no phone) no organization name - procedure (no phone) 09-14-2019 08-11-2015 Patient encounter no information no name (no phone) no organization name procedure (no phone) 11-13-2019 no information Encounter for other no name (no phon e) no organization name preprocedural (no phone) examination no information Encounter for other no name (no phone) no org anization name preprocedural (no phone) examination Medical Equipment No Information Payers No Information Additional Source Comments This clinical document has been generated using [employer] software that has been certified by the Office of the National Coordinator for Health Information Technology (ONC 15.99.04.3023.Diam.31.00.0.154061) and the National Committee for Jeeper Operator (NCQA, as an eMeasure certified technology). FOR RECORDS PERTAINING TO PATIENTS WHO ARE OR HAVE BEEN ENROLLED IN A CHEMICAL D EPENDENCY/SUBSTANCE ABUSE PROGRAM, SOME INFORMATION MAY BE OMITTED. This clinica l summary was aggregated from multiple sources. Caution should be exercised in using it in the provision of clinical care. This summary normalizes information from multiple sources, and as a consequence, information in this document may ma terially change the coding, format and clinical context of patient data. In julio tion, data may be omitted in some cases. CLINICAL DECISIONS SHOULD BE BASED ON T HE PRIMARY CLINICAL RECORDS. [facility]. provides no warranty or guara ntee of the accuracy or completeness of information in this document.The followi information is based on time limited clinical information
[2019-11-19] MEDS ORDERED: ceFAZolin 2 GM IV Premixed 50 ML IV ONE (07:30)
[2019-11-19] MEDS ORDERED: BUP/EPI 0.5% 1:200,000 (SENSORCAINE) 30 ML VIAL ONE (07:48)
--- NOTE | 2019-11-19 07:52 | Progress Note-Pre Operative ---
Pre-Operative Progress Note H&P Reviewed The H&P was reviewed, patient examined and no changes noted. 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
[2019-11-19] MEDS ORDERED: HYDR-4227 PO (07:55)
--- NOTE | 2019-11-19 07:55 | Discharge Inst-Surgical ---
D/C Lap Instructions-KIDO Reconcile Patient Problems Problems Reviewed?: Yes New, Converted, or Re-Newed RX: RX on Chart Follow Up Appt in 2 weeks Activity as tolerated No driving for 24 hours No driving while on pain medications Incentive Spirometry use every 2 hours while awake Regular Diet Symptoms to Report: Fever over 101 degree F, Nausea/Vomiting Infection Signs and Symptoms to report: Increased redness, Foul odor of wound, Increased drainage Bathing instructions: May shower Operative Area Clean/Dry; Keep incision clean/dry If any problems/questions: Contact your physician or go to Emergency Room BELIA MEJIA APRN Nov 19, 2019 07:55
[2019-11-19] MEDS ORDERED: ONDANSETRON 4 MG/2 ML (SDV) Z0FRAN IVP PRN ×2 (08:00→11:30)
[2019-11-19] MEDS ORDERED: ACETAMINOPHEN 325 MG TABLET PO PRN (08:00)
[2019-11-19] MEDS ORDERED: oxyCODONE/APAP 5/325MG (PERCOCET 5) TABLET PO PRN (08:00)
[2019-11-19] MEDS ORDERED: proPOfol 200 MG/20 ML (DIPRIVAN) VIAL IV ONE (08:26)
[2019-11-19] MEDS ORDERED: GLYCOPYRROLATE 0.2 MG/ML (ROBINUL) 2 ML VIAL ONE (08:26)
[2019-11-19] MEDS ORDERED: SEVOFLURANE (ULTANE) 15 ML INHAL SOLN ONE ×3 (08:26→11:08)
[2019-11-19] MEDS ORDERED: NEOSTIGMINE 3 MG/3 ML VIAL ONE (08:26)
[2019-11-19] MEDS ORDERED: LIDOCAINE PF 2% 5 ML (XYLOCAINE) VIAL ONE (08:26)
[2019-11-19] MEDS ORDERED: ROCURONIUM 10 MG/ML 5 ML SYRINGE IV ONE ×2 (08:26→10:46)
[2019-11-19] MEDS ORDERED: ONDANSETRON 4 MG/2 ML (SDV) Z0FRAN ONE (08:26)
[2019-11-19] MEDS ORDERED: MIDAZOLAM 2 MG/2 ML (VERSED) VIAL ONE (08:27)
[2019-11-19] MEDS ORDERED: fentaNYL INJECTION 100 MCG/2 ML AMP ONE ×2 (08:27→11:17)
--- NOTE | 2019-11-19 11:26 | Progress Note-Post Operative ---
Post-Operative Progess Note Surgeon (s)/Vat Operator (s) Surgeon ELIZABETH FUENTES MD Vat Operator: tulio hazel BUSINESS APPLICATIONS DEVELOPER Pre-Operative Diagnosis Symptomatic Chronic calculous cholecystitis and left inguinal hernia Post-Operative Diagnosis symptomatic chronic calculous cholecystitis. incarcerated left inguinal hernia with colon. Procedure & Operative Findings Date of Procedure 11/19/19 Procedure Performed/Findings laparoscopic cholecystectomy. laparoscopic repair left incarcerated inguinal hernia with mesh. Anesthesia Type GET Estimated Blood Loss Estimated blood loss (mL): minimal Specimens/Packing Specimens Removed gallbladder ELIZABETH FUENTES MD Nov 19, 2019 11:26
[2019-11-19] MEDS ORDERED: PROMETHAZINE INJ 25 MG/ML (PHENERGAN) AMP IVP ONE (11:30)
[2019-11-19] MEDS ORDERED: MEPERIDINE (DEMEROL) INJ 50 MG/ML IVP ONE (11:30)
[2019-11-19] MEDS ORDERED: fentaNYL INJECTION 100 MCG/2 ML AMP IVP ONE (11:30)
[2019-11-19] MEDS ORDERED: morphine INJ 10 MG/ML 1ML (SYR OR VIAL) ONE (11:40)
[2019-11-19] MEDS: morphine INJ 10 MG/ML 1ML (SYR OR VIAL) IVP PRN ×2 (11:53→11:58)
[2019-11-19] MEDS ORDERED: oxyCODONE/APAP 5/325MG (PERCOCET 5) TABLET ONE (12:47)
--- NOTE | 2019-11-19 12:58 | OPERATIVE REPORT ---
DATE OF SERVICE: 11/19/2019 ATTENDING PRIMARY CARE PHYSICIAN: Lg Lugo MD PREOPERATIVE DIAGNOSES: Incarcerated symptomatic left inguinal hernia, symptomatic cholelithiasis. POSTOPERATIVE DIAGNOSES: Incarcerated symptomatic left inguinal hernia, symptomatic cholelithiasis. PROCEDURE: Laparoscopic incarcerated left inguinal hernia repair with mesh, laparoscopic cholecystectomy. SURGEON: Elizabeth Fuentes MD AGRICULTURAL INSPECTOR: Vickey Guzman APRN. ANESTHESIA: General endotracheal. ESTIMATED BLOOD LOSS: Minimal. FINDINGS: Incarcerated symptomatic left inguinal hernia, symptomatic cholelithiasis. DISPOSITION: The patient tolerated the procedure well. INDICATIONS: The patient is a 69-year-old male who has had multitude of symptoms in the past few years. He reports that he has had pain in the left inguinal region for years; however, this has increased significantly in the past few months. Upon examination, he was found to have an incarcerated left inguinal hernia. He also underwent a recent colonoscopy. He also does have intermittent pain in the right upper abdominal quadrant usually after meal. A CT scan for another reason did reveal gallstones. He reports that the pain and other symptomatology including nausea have worsened over time. DESCRIPTION OF PROCEDURE: The patient was brought to the operating room, laid supine on the table. After adequate IV pain and sedative medications and general endotracheal intubation, the abdomen was prepped and draped in standard surgical fashion. A 0.5% Marcaine with epinephrine was used to anesthetize the overlying skin in the left upper abdominal quadrant and a transverse skin incision was made using a 15 blade. An 0 silk suture was applied to the medial aspect of incision for retraction and a Veress needle inserted with a low opening pressure of 0 mmHg and the abdomen was then insufflated to 15 mmHg pressure. The Veress needle was removed and a 5 mm XL trocar placed followed by a 5 mm 45-degree angle laparoscope visualizing the peritoneal cavity. A 4-quadrant abdominal exploration was performed. An incarcerated large left inguinal hernia was identified with sigmoid colon within the hernia sac. This was nonreducible. There were some omental adhesions towards the anterior abdominal wall from a previous midline laparotomy incision. Gallbladder was distended, no gallbladder wall thickening. Under direct visualization, we then proceeded to place a supraumbilical 10 mm port after the skin and peritoneal lining were anesthetized using 0.5% Marcaine with epinephrine and transverse skin incision made using a 15 blade. In a similar fashion, two lateral 5 mm ports were placed. The patient was then placed in reverse Trendelenburg position. We then proceeded to create a window within the mesentery using the Sonicision. We then proceeded our dissection laterally towards the conjoint tendon and inguinal ligament laterally. We then proceeded medially until the Luis Armando's ligament was identified. We then proceeded with blunt dissection as well as using the Sonicision to reduce the hernia, which was hernia sac as well as sigmoid colon. There were no ischemic changes within the colon. The cord and its contents identified and spared throughout the process. Good hemostasis was observed. A medium size 3DMax polypropylene mesh was then placed through the 10 mm port site and tacked to Luis Armando's ligament medially and to conjoined tendon laterally using absorbable tacks. The mesentery and hernia sac remnant was then placed over the mesh and a few tacks placed over the absorbable tacks to keep this in place with visualization of good hemostasis. We then turned our attention towards laparoscopic cholecystectomy. The fundus of the gallbladder was then retracted anteriorly and superiorly. The hepatoduodenal ligament was then opened using blunt dissection as well as electrocautery and hook instrument. The entire critical view of safety was identified including the triangle of Calot as well as the cystic duct and artery as the only two structures going into the gallbladder as well as the cystic plate behind the proximal gallbladder. A timeout was then taken and the cystic duct and artery were then clipped proximally and distally and cut with EndoShears. The gallbladder was then dissected off the liver bed using cautery on the hook instrument with visualization of good hemostasis as well as no leaking ducts of Luschka. The gallbladder was removed through the 10 mm port site using an EndoCatch bag. The 10 mm port site fascia and peritoneum were then closed under direct visualization using a Carlyle-Terry device and 0 Vicryl suture. The abdomen was desufflated and remaining ports removed. All skin incisions were closed using 4-0 Monocryl running subcuticular sutures. Wounds were then cleaned and covered with Dermabond. The patient tolerated the procedure well. He will be instructed to do no heavy lifting or exertion, especially for the first 2 weeks and then slowly incorporate some activity; however, not 100%. He will need a total of 6 weeks for a significant tensile strength of the hernia repair. We will also recommend scrotal support for the next two weeks as well. We will have him follow up in 2 weeks as well. Job ID: [id number] DocumentID: [id number] Dictated Date: 11/19/2019 11:33:00 Pigment Mixer Date: 11/19/2019 12:57:59 Dictated By: ELIZABETH FUENTES MD
--- NOTE | 2019-11-23 06:50 | Anesthesia-General Post-Op ---
General Patient Condition Mental Status/LOC: Same as Preop Cardiovascular: Satisfactory Nausea/Vomiting: Absent Respiratory: Satisfactory Pain: Controlled Complications: Absent Post Op Complications Complications None Follow Up Care/Instructions Patient Instructions None needed. Anesthesia/Patient Condition Patient Condition Post-dated progress note: Pt was seen on 11-19-2019 at 1205 Patient was seen after the procedure and he was doing well, no complaints, stable vital signs, no apparent adverse anesthesia problems. VALDEZ FLETCHER DO Nov 23, 2019 06:50
== END 2019-11-19 14:05 | disposition home or self-care (01) ==
LOC: SDC 07:21
PROVIDERS: ATTEND Surgery
DX: K40.30 Unilateral inguinal hernia, with obstruction, without gangrene, not specified as recurrent (principal); K80.10 Calculus of gallbladder with chronic cholecystitis without obstruction; Z11.2 Encounter for screening for other bacterial diseases; I10 Essential (primary) hypertension; M19.91 Primary osteoarthritis, unspecified site; Z85.820 Personal history of malignant melanoma of skin; Z96.652 Presence of left artificial knee joint; Z79.82 Long term (current) use of aspirin; Z79.899 Other long term (current) drug therapy; Z80.3 Family history of malignant neoplasm of breast; Z80.1 Family history of malignant neoplasm of trachea, bronchus and lung; E66.9 Obesity, unspecified; Z68.39 Body mass index [BMI] 39.0-39.9, adult
CPT/HCPCS: 87081; 88304